=== PATIENT | male | born 1985 | race Hispanic/Latino ===

== ENCOUNTER 2018-01-31 11:31 | Emergency (ER) | payer SELFPAY ==
[~2018-01-31] VITALS: Ht 182.9 cm; Wt 77.1 kg
--- NOTE | 2018-01-31 13:12 | Diagnostic Imaging Report ---
PROCEDURE:HAND RIGHT 3 VIEWS AP \T\ LAT COMPARISON:None. INDICATIONS:LACERATION TO RIGHT INDEX FINGER FINDINGS: Detail is slightly degraded by overlying bandage material along the index finger. Soft tissue defect along the lateral aspect of the distal second digit at the level of the distal phalanx. Small oblong radiopacity likely represents radiopaque debris within the laceration. No underlying acute osseous abnormality. Joint spaces are well-maintained. CONCLUSION: Laceration of the distal aspect of the index finger with suspected small focus of radiopaque debris within the wound. No osseous abnormalities. Dictated by: Lukas Pendleton M.D. on 01/31/2018 at 13:16 Electronically approved by: Lukas Pendleton M.D. on 01/31/2018 at 13:16
[2018-01-31] MEDS ORDERED: LIDOCAINE HCL 1% LOCAL INJ 20 ML VIAL INJ ONE (13:15)
[2018-01-31] MEDS ORDERED: CEFAZOLIN SOD 1 GM VIAL IM SCH (14:15)
[2018-01-31] MEDS: BACITRACIN ZINC 0.9GM TP ONE ×2 (14:30→14:44)
== END 2018-01-31 15:00 | disposition home or self-care (01) ==
LOC: ER 11:31
DX: S61.210A Laceration without foreign body of right index finger without damage to nail, initial encounter (principal); W26.0XXA Contact with knife, initial encounter; Y99.0 Civilian activity done for income or pay
CPT/HCPCS: 13132; 73130; 99283; J0690; J2001